=== PATIENT | male | born 1970 | race Caucasian/White ===

== ENCOUNTER 2018-01-16 19:07 | Emergency (ER) | payer OTHER ==
[2018-01-16 19:21] VITALS: BP 141/84; PULSE 96; RESP 16; TEMP 98.2
[2018-01-16] MEDS ORDERED: PROPARACAINE 0.5% OPHTH DROPS 15 ML BTL LEFT EYE STA (19:24)
--- NOTE | 2018-01-16 19:42 | ED ---
ENT HPI - General Chief complaint: ENT Stated complaint: FB in eye Time Seen by Provider: 01/16/18 19:23 Source: patient, RN notes reviewed Mode of arrival: ambulatory Limitations: no limitations - History of Present Illness Initial comments: This is a 47-year-old male who presents to the emergency department with chief complaint of concern for foreign body in his left eye. Patient states that last evening he was doing yard work and cutting the grass with a weed whacker. He states that the weed whacker hit a rock which then hit the house and then hit him in the left eye. He states that he flushed the eye with saline yesterday and multiple times today. He denies pain or itchiness, but does report a foreign body sensation. He denies blurred vision or vision changes. Denies any other injuries or trauma. Denies fever, chills, chest pain, shortness of breath, abdominal pain, nausea or vomiting, numbness or tingling, headache. - Related Data Allergies Allergy/AdvReac Type Severity Reaction Status Date / Time No Known Allergies Allergy Verified 01/16/18 19:21 Review of Systems ROS Statement: Those systems with pertinent positive or pertinent negative responses have been documented in the HPI. ROS Other: All systems not noted in ROS Statement are negative. Past Medical History Past Medical History: No Reported History History of Any Multi-Drug Resistant Organisms: None Reported Past Surgical History: Orthopedic Surgery Additional Past Surgical History / Comment(s): plate in right ankle Past Psychological History: No Psychological Hx Reported Smoking Status: Current every day smoker Past Alcohol Use History: None Reported Past Drug Use History: Marijuana General Exam - General Exam Comments Initial Comments: General: Awake and alert, well-developed; in no apparent distress. HEENT: Head atraumatic, normocephalic. Pupils are equal, round and reactive to light. Extraocular movements intact. Left conjunctiva is injected. On fluorescein staining, there is a large corneal abrasion in the right upper quadrant of the iris. Negative Mohit's test. No foreign body of the cornea or under upper or lower eyelids. Oropharynx moist without erythema or exudate. Neck: Supple. Normal ROM. Cardiovascular: Regular rate and rhythm. No murmurs, rubs or gallops. Chest symmetrical. Respiratory: Lungs clear to auscultation bilaterally. No wheezes, rales or rhonchi. Normal respiratory effort with no use of accessory muscles. Musculoskeletal: Normal ROM, no tenderness bilateral upper and lower extremities. Ambulating normally. Skin: [place], warm and dry without rashes or lesions. Neurological: Alert and oriented x3. CN II-XII grossly intact. Speech is fluent and answers are appropriate. No focal neuro deficits. Psychiatric: Normal mood and affect. No overt signs of depression or anxiety noted. Limitations: no limitations Course Vital Signs 01/16/18 19:16 Temperature 98.2 F Pulse Rate 96 Respiratory 16 Rate Blood Pressure 141/84 O2 Sat by Pulse 96 Oximetry Medical Decision Making - Medical Decision Making This is a 47-year-old male who presents to the emergency department with concern for foreign body in his left eye. No foreign body was seen on physical examination. On fluorescein staining, there is a large corneal abrasion in the right upper quadrant of the iris. Patient will be given a prescription for Tobrex drops. He is to follow-up with ophthalmology within 1-2 days to ensure resolution of this large corneal abrasion. Patient's vital signs are stable and he is in no acute distress. He will be discharged home at this time. He is in agreement with plan and voices understanding. All questions were answered. Disposition Clinical Impression: Corneal abrasion Disposition: HOME SELF-CARE Condition: Good Instructions: Corneal Abrasion (ED), Tobramycin (Into the eye) Additional Instructions: Please apply 1-2 drops of Tobrex every 4 hours for 5 days. Please follow up with Dr. Lugo, ophthalmology within 1-2 days. Please take medications as prescribed. Please follow up with primary care provider within 1-2 days. Return to emergency department if symptoms should worsen or any concerns arise. Is patient prescribed a controlled substance at d/c from ED?: No Referrals: None,Stated [Primary Care Provider] - 1-2 days Joanne Lugo MD [STAFF PHYSICIAN] - 1-2 days Time of Disposition: 19:52
[2018-01-16] MEDS ORDERED: TOBRAMYCIN 0.3% OPHTH DROPS 5 ML BTL LEFT EYE STA (19:44)
== END 2018-01-16 19:58 | disposition home or self-care (01) ==
LOC: EC 19:07
DX: S00.211A Abrasion of right eyelid and periocular area, initial encounter (principal); F17.200 Nicotine dependence, unspecified, uncomplicated; W22.8XXA Striking against or struck by other objects, initial encounter; Y92.009 Unspecified place in unspecified non-institutional (private) residence as the place of occurrence of the external cause; Y93.A6 Activity, grass drills
CPT/HCPCS: 99283